=== PATIENT | female | born 1945 | race Caucasian/White ===

== ENCOUNTER → 2016-07-14 | Outpatient (CLI) | payer MEDICARE, OTHER ==
--- NOTE | 2016-07-14 15:31 | REP ---
DIAGNOSTIC MAMMOGRAM RIGHT BREAST WITH RIGHT BREAST ULTRASOUND: Diagnostic mammogram right breast performed for a reported palpable abnormality near the nipple in the lower inner aspect of the right breast. Comparison made with multiple prior exams, most recently 11/11/2015. There is no mass or clustered microcalcifications. Metallic clip is again seen in the right retroareolar region. There is no new mass or clustered microcalcifications. Real-time sonographic of the right breast performed in the region of the reported palpable abnormality. No cystic or solid nodule is seen. IMPRESSION: ACR 2 benign. No mass or clustered microcalcifications seen on the mammogram of the right breast. There is no mammographic or sonographic evidence of a mass at the site of the reported palpable abnormality in the right breast. A negative mammogram and ultrasound should not deter biopsy if there is a clinically suspicious palpable mass present. Clinical correlation and followup recommended. Recommend followup bilateral mammogram October 2016. This mammogram was interpreted with the aid of an FDA-approved computer-aided detection system. The patient states she/he had a clinical breast exam in 06/2016. The patient letter being requested is M2. Signed by David Young MD 07/14/2016 04:18 P
== END ==
LOC: M RAD 13:43
PROVIDERS: ATTEND Family Medicine
DX: N63 Unspecified lump in breast (principal); N64.4 Mastodynia
CPT/HCPCS: 76642; G0206

== ENCOUNTER → 2016-11-20 | Outpatient (CLI) | payer MEDICARE, OTHER ==
--- NOTE | 2016-11-20 13:10 | REPMRS ---
Patient History The patient states she has not had a clinical breast exam in over a year. Patient is postmenopausal. No known family history of cancer. Benign radio exam breast specimen of the left breast, December 23, 2015. Benign stereotatic loc for ea lesion of the left breast, December 23, 2015. Benign US guided breast biopsy of both breasts, November 21, 2013. Digital Mammo Screening Bilat: November 20, 2016 - Exam #: [id number] Bilateral CC and MLO view(s) were taken. Technologist: Beena Larsen, Technologist Prior study comparison: July 14, 2016, right breast digital mammo diagnostic unilateral performed at [facility]. November 18, 2015, left breast digital mammo diagnostic unilateral performed at [facility]. November 11, 2015, digital woman screen mammo, performed at [facility]. October 13, 2014, digital woman screen mammo, performed at [facility]. FINDINGS: There are scattered fibroglandular densities. There has been no change in the appearance of the mammogram from the prior studies. There is a mild amount of residual fibroglandular tissue which is fairly symmetric. There is no interval development of dominant mass, architectural distortion, or clustered microcalcification suggestive of malignancy. There is a stereotactic clip in UOQ L breast where prior calcific group was biopsied last year with benign results and no clustered calcifications remaining. ASSESSMENT: BI-RADS/ACR category 2 mammogram. Benign finding(s). Recommendation Routine screening mammogram in 1 year (for women over age 40). This mammogram was interpreted with the aid of an FDA-approved computer-aided dectection system. A. Negative x-ray reports should not delay biopsy if a dominant or clinically suspicious mass is present. B. Four to eight percent of cancers are not identified by mammography. C. Adenosis and dense breast may obscure an underlying neoplasm. Electronically Signed By: Braulio Pineda MD 11/20/16 [id number]
== END ==
LOC: M RAD 09:34
PROVIDERS: ATTEND Family Medicine
DX: Z12.31 Encounter for screening mammogram for malignant neoplasm of breast (principal)

== ENCOUNTER → 2017-11-13 | Outpatient (CLI) | payer MEDICARE, OTHER | LOC: M WHC 11:38 | DX: Z12.31 Encounter for screening mammogram for malignant neoplasm of breast (principal) | CPT/HCPCS: 77067 ==

== ENCOUNTER → 2018-09-03 | Outpatient (CLI) | payer MEDICARE, OTHER ==
[2018-09-03 17:56] LABS: BLOOD UREA NITROGEN 17 MG/DL (7-18); CALCIUM LEVEL 9.3 MG/DL (8.8-10.2); CARBON DIOXIDE LEVEL 34 MEQ/L (21-32); CHLORIDE LEVEL 96 MEQ/L (98-107); CREATININE FOR GFR 0.93 MG/DL (0.55-1.30); GLOMERULAR FILTRATION RATE > 60.0 (>39); GLUCOSE, FASTING 121 MG/DL (70-100); POTASSIUM SERUM 4.4 MEQ/L (3.5-5.1); SODIUM LEVEL 136 MEQ/L (136-145)
[2018-09-03 18:05] LABS: BASO # 0.1 10^3/uL (0.0-0.2); BASO % 0.7 % (0.0-1.0); EOS # 0.1 10^3/uL (0.0-0.50); EOS % 1.6 % (0.0-3.0); HEMATOCRIT 43.4 % (36.0-47.0); HEMOGLOBIN 13.8 g/dl (12.0-15.5); LYMPH # 2.4 10^3/uL (1.5-4.5); LYMPH % 27.9 % (24.0-44.0); MEAN CORPUSCULAR HEMOGLOBIN 31.7 pg (27.0-33.0); MEAN CORPUSCULAR HGB CONC 31.8 g/dl (32.0-36.5); MEAN CORPUSCULAR VOLUME 99.5 fl (80.0-96.0); MONO # 0.8 10^3/uL (0.0-0.8); NEUTROPHILS # 5.2 10^3/uL (1.8-7.7); NEUTROPHILS % 60.5 % (36.0-66.0); PLATELET COUNT, AUTOMATED 242 10^3/uL (150-450); RED BLOOD COUNT 4.36 10^6/uL (4.00-5.40); WHITE BLOOD COUNT 8.6 10^3/uL (4.0-10.0)
== END ==
LOC: M SMT 13:51
PROVIDERS: ATTEND Physician Assistant
DX: K22.70 Barrett's esophagus without dysplasia (principal)

== ENCOUNTER 2018-11-01 10:18 | Emergency (ER) | payer MEDICARE, OTHER ==
[~2018-11-01] VITALS: Ht 165.1 cm; Wt 107.7 kg
[2018-11-01] MEDS ORDERED: ONDANSETRON 4MG/2ML VIAL (J2405) IV ONE (10:45)
[2018-11-01] MEDS ORDERED: NITROGLYCERIN 2% OINT 1 GM *U/D* PKT TOP ONE (10:45)
[2018-11-01 10:46] LABS: BASO # 0.1 10^3/uL (0.0-0.2); BASO % 0.8 % (0.0-1.0); EOS # 0.3 10^3/uL (0.0-0.50); EOS % 3.7 % (0.0-3.0); HEMATOCRIT 42.2 % (36.0-47.0); HEMOGLOBIN 13.7 g/dl (12.0-15.5); LYMPH # 2.4 10^3/uL (1.5-4.5); LYMPH % 32.4 % (24.0-44.0); MEAN CORPUSCULAR HGB CONC 32.5 g/dl (32.0-36.5); MEAN CORPUSCULAR VOLUME 98.6 fl (80.0-96.0); MONO # 0.6 10^3/uL (0.0-0.8); MONO % 7.6 % (0.0-5.0); NEUTROPHILS # 4.1 10^3/uL (1.8-7.7); NEUTROPHILS % 55.2 % (36.0-66.0); PLATELET COUNT, AUTOMATED 166 10^3/uL (150-450); RED BLOOD COUNT 4.28 10^6/uL (4.00-5.40); WHITE BLOOD COUNT 7.4 10^3/uL (4.0-10.0)
[2018-11-01 10:57] LABS: INR 0.97; PARTIAL THROMBOPLASTIN TIME 27.2 SECONDS (25.0-38.4); PROTHROMBIN TIME 12.6 SECONDS (11.8-14.0)
[2018-11-01 11:12] LABS: BLOOD UREA NITROGEN 23 MG/DL (7-18); CALCIUM LEVEL 8.6 MG/DL (8.8-10.2); CARBON DIOXIDE LEVEL 32 MEQ/L (21-32); CHLORIDE LEVEL 104 MEQ/L (98-107); CK-MB VALUE MASS < 1.0 NG/ML (<3.6); CPK CREATINE PHOSPHOKINASE 49 U/L (26-192); CREATININE FOR GFR 0.88 MG/DL (0.55-1.30); GLOMERULAR FILTRATION RATE > 60.0 (>39); GLUCOSE, FASTING 130 MG/DL (70-100); MB/CK RELATIVE INDEX 2.04 (< OR =4); POTASSIUM SERUM 4.3 MEQ/L (3.5-5.1); SODIUM LEVEL 141 MEQ/L (136-145); TROPONIN I < 0.02 NG/ML (< 0.10)
--- NOTE | 2018-11-01 11:18 | REP ---
Portable chest x-ray: Single AP view. History: Chest pain. Comparison chest x-ray: April 01, 2012. Findings: Oxygen delivery tubing and EKG monitoring electrodes overlie the chest. The lungs are symmetrically aerated and free of infiltrate. Heart is not enlarged. Pulmonary vasculature is not increased. Right hemidiaphragm remains somewhat elevated unchanged. There are clips in right upper quadrant. Impression: No acute disease seen. Electronically Signed by Haider Saez MD 11/01/2018 12:38 P
[2018-11-01 11:23] LABS: ALBUMIN 3.6 GM/DL (3.2-5.2); BILIRUBIN,DIRECT 0.1 MG/DL (0.0-0.2); BILIRUBIN,TOTAL 0.3 MG/DL (0.2-1.0); FREE T4 0.87 NG/DL (0.76-1.46); THYROID STIMULATING HORMONE 3.21 uIU/ML (0.358-3.740); TOTAL PROTEIN 6.9 GM/DL (6.4-8.2)
[2018-11-01] MEDS ORDERED: METF500T4 PO (11:27)
[2018-11-01] MEDS ORDERED: ESCI20TA PO (11:27)
[2018-11-01] MEDS ORDERED: BREO1INH PO (11:27)
[2018-11-01] MEDS ORDERED: HYDR-3716 PO (11:27)
[2018-11-01] MEDS ORDERED: LISI10TA2 PO (11:27)
[2018-11-01] MEDS ORDERED: FURO40TA2 PO (11:27)
[2018-11-01] MEDS ORDERED: ATEN100T PO (11:27)
[2018-11-01] MEDS ORDERED: ALLO100T PO (11:27)
[2018-11-01] MEDS ORDERED: SIMV20TA2 PO (11:27)
[2018-11-01] MEDS ORDERED: ASPI81TA26 PO (11:27)
[2018-11-01] MEDS ORDERED: RANI300C PO (11:27)
[2018-11-01] MEDS ORDERED: ZYLO300T6 PO (11:27)
[2018-11-01] MEDS ORDERED: NYST10OI TOP (11:27)
[2018-11-01] MEDS ORDERED: ALBU83IN NEB (11:27)
[2018-11-01] MEDS ORDERED: POTA1TAB14 PO (11:27)
[2018-11-01] MEDS ORDERED: ESOM1CAP5 PO (11:27)
[2018-11-01] MEDS ORDERED: ISOVUE-370 76% 100ML VIAL (Q9967) As Ordered ONE (12:23)
--- NOTE | 2018-11-01 13:35 | REP ---
CT ANGIOGRAM CHEST: TECHNIQUE: Axial contrast enhanced images from the thoracic inlet to the upper abdomen using 100 mL Isovue 370 intravenous contrast material with multiplanar reformations. There is no CT evidence of pulmonary embolism. There is no thoracic aortic aneurysm or dissection, with scattered atherosclerotic plaquing noted. There is no evidence of mediastinal, hilar, or chest wall lymphadenopathy. The heart is normal in size. There is no pleural or pericardial effusion. There is moderate elevation of the right hemidiaphragm with right base atelectatic change. This is chronic. There is mild fibroatelectatic change in the inferior lingula and left lower lobe. IMPRESSION: No CT evidence of pulmonary embolism or aortic dissection. Bibasilar fibroatelectatic change. Electronically Signed by David Young MD 11/04/2018 01:03 P
--- NOTE | 2018-11-01 13:57 | REP ---
CT ABDOMEN AND PELVIS WITH IV CONTRAST: TECHNIQUE: Axial contrast enhanced images from the lung bases to the pubic symphysis using 100 mL Isovue 370 intravenous contrast material with multiplanar reformations. Liver demonstrates a 2 cm peripherally enhancing nodule most consistent with hemangioma, laterally in the right lobe. The patient has had a prior cholecystectomy. There is not significant biliary dilatation. The spleen is normal in size with no intrinsic abnormality. Both adrenal glands are mildly thickened. Pancreas demonstrates no significant abnormality. Pancreatic duct is not dilated. There is no peripancreatic inflammation. Two subcentimeter cysts are seen in the left kidney. There is no hydronephrosis bilaterally. There is moderate atherosclerotic calcification of the abdominal aorta without aneurysm. I see no adenopathy, free air or free fluid. There are multiple central subcentimeter lymph nodes in the mesentery which are nonspecific, but not significantly enlarged. No bowel wall thickening is seen. There is no evidence of appendicitis. There is sigmoid diverticulosis without evidence of acute diverticulitis. No pelvic mass is seen. Urinary bladder appears unremarkable. There are degenerative changes of the spine. An oval cystic structure is seen in the right vaginal wall measuring about 19 x 8 mm. IMPRESSION: No CT evidence of pancreatitis. Sigmoid diverticulosis without acute diverticulitis. Multiple subcentimeter lymph nodes centrally in the mesentery are nonspecific, not significantly enlarged. Nodule in the right lobe of the liver is most consistent with hemangioma. There is bilateral adrenal gland thickening. No free air or free fluid. No hydronephrosis. No evidence of appendicitis. The central mesentery lymph nodes could indicate some degree of mesenteritis or panniculitis, possibly choric. Electronically Signed by David Young MD 11/04/2018 01:03 P
[2018-11-01] MEDS ORDERED: NS 500 ML IV ONE (14:45)
[2018-11-01] MEDS ORDERED: methylPREDNISolone INJ 125 MG/2 ML VIAL (J2930) IV ONE (16:30)
[2018-11-01] MEDS ORDERED: IPRATROPIUM 0.5MG/ALBUTEROL 2.5MG INH SOL UD 3ML (DUONEB)(J7620) NEB ONE (16:30)
[2018-11-01] MEDS ORDERED: ALBUTEROL SULFATE 2.5 MG/0.5 ML INH NEB SOLN INH ONE (16:30)
[2018-11-01 16:31] LABS: CK-MB VALUE MASS < 1.0 NG/ML (<3.6); CPK CREATINE PHOSPHOKINASE 42 U/L (26-192); MB/CK RELATIVE INDEX 2.38 (< OR =4); TROPONIN I < 0.02 NG/ML (< 0.10)
[2018-11-01 18:27] VITALS: BP 121/56
--- NOTE | 2018-11-01 20:31 | ECGEPIP ---
[facility] - ED Test Date: 2018-11-01 Pat Name: EKATERINA HOYT Department: Room: - Gender: Female Biological Aide: : 1945 Requested By: Richard Mojica Order Number: [id number] Reading MD: Richard Mojica Measurements Intervals [place] Rate: 57 P: DE: 145 QRS: 37 QRSD: 80 T: 31 QT: 412 QTc: 403 Interpretive Statements SINUS BRADYCARDIA NO PRIOR ECG FOR COMPAIRSON SUBTLE ST ELEVATION INFERIOR LEADS, NO RECIPROCAL LEADS RULE OUT ACUTE CORONARY SYNDROME VS NONSPECIFIC ST T WAVE CHANGES Electronically Signed on 11-01-2018 20:31:25 EDT by Richard Mojica
--- NOTE | 2018-11-01 20:33 | ECGEPIP ---
[facility] - ED Test Date: 2018-11-01 Pat Name: EKATERINA HOYT Department: Room: - Gender: Female Head Of Ict: : 1945 Requested By: Richard Mojica Order Number: [id number] Reading MD: Richard Mojica Measurements Intervals [place] Rate: 52 P: 60 OK: 177 QRS: 32 QRSD: 84 T: 35 QT: 447 QTc: 419 Interpretive Statements SINUS BRADYCARDIA SUBTLE ST ELEVATION INFERIOR LEDAS, NO RECIPROCAL CHANGES RULE OUT ACUTE CORONARY SYNDROME VS NONSPECIFIC ST T WAVE CHANGES CLINICAL CORRELATION ADVISED CW 11/01/18 RATE DECREASED SIMILAR MORPHOLGY Electronically Signed on 11-01-2018 20:33:36 EDT by Richard Mojica
--- NOTE | 2018-11-01 20:50 | ECGEPIP ---
[facility] - ED Test Date: 2018-11-01 Pat Name: EKATERINA HOYT Department: Room: - Gender: Female Contracts Paralegal: : 1945 Requested By: Richard Mojica Order Number: [id number] Reading MD: Richard Mojica Measurements Intervals [place] Rate: 65 P: 56 VT: 182 QRS: 27 QRSD: 82 T: 32 QT: 399 QTc: 418 Interpretive Statements SINUS RHYTHM SUBTLE ST ELEVATION INFERIOR LEADS, NO RECIPROCAL CHANGES RULE OUT ACUTE CORONARY SYNDROME VS NONSPECIFIC ST T WAVE CHANGES CLINICAL CORRELATION ADVISED CW 11/01/[address] T WAVE CHANGES Electronically Signed on 11-01-2018 20:50:16 EDT by Richard Mojica
--- NOTE | 2018-11-06 13:50 | ED PDOC ---
Post-Departure Follow-Up dr erika arboleda faxed formal reportof ct abd/p for fu Richard Mcdonald MD Nov 06, 2018 13:50
== END 2018-11-01 18:29 | disposition home or self-care (01) ==
LOC: EDBD 10:18 → M ED 10:18
DX: R09.02 Hypoxemia (principal); R07.9 Chest pain, unspecified; E11.9 Type 2 diabetes mellitus without complications; I10 Essential (primary) hypertension; J44.9 Chronic obstructive pulmonary disease, unspecified; E78.5 Hyperlipidemia, unspecified; K22.70 Barrett's esophagus without dysplasia; Z79.899 Other long term (current) drug therapy; Z79.84 Long term (current) use of oral hypoglycemic drugs; Z79.82 Long term (current) use of aspirin; Z87.891 Personal history of nicotine dependence
CPT/HCPCS: 71045; 71275; 74177; 80048; 80076; 82550; 82553; 83690; 83880; 84439; 84443; 84484; 85025; 85610; 85730; 93005; 93041; 94640; 94760; 96361; 96374; 96375; 99285; J2405; J2930; Q9967

== ENCOUNTER → 2018-11-07 | Outpatient (CLI) | payer MEDICARE, OTHER ==
[~2018-11-07] MED LIST: ALBU83IN NEB; ALLO100T PO; ASPI81TA26 PO; ATEN100T PO; BREO1INH PO; ESCI20TA PO; ESOM1CAP5 PO; FURO40TA2 PO; HYDR-3716 PO; LISI10TA2 PO; METF500T4 PO; NYST10OI TOP; POTA1TAB14 PO; RANI300C PO; SIMV20TA2 PO; ZYLO300T6 PO
== END ==
LOC: M WUC 11:58
PROVIDERS: ATTEND Physician Assistant
DX: R74.8 Abnormal levels of other serum enzymes (principal)

== ENCOUNTER 2018-11-13 08:04 | Day surgery (SDC) | payer MEDICARE, OTHER ==
[~2018-11-13] VITALS: Ht 165.1 cm; Wt 107.0 kg
[~2018-11-13 08:04] MED LIST changes: +LIDOCAINE 2% INJ 100 MG/5 ML SDV (FOR ANES.) As Ordered ONE; +NS 1,000 ML IV ONE; +PROPOFOL 200 MG/20 ML VIAL As Ordered ONE
--- NOTE | 2018-11-13 10:07 | ROOR ---
Patient Name: Zaria Bailon Procedure Date: 11/13/2018 9:50 AM Date of : 1945 Age: 73 Room: [facility] Gender: Female Note Status: Finalized Procedure: Upper Endoscopy + Biopsies Indications: Heartburn, Diarrhea Providers: Mika Dalton MD Referring MD: Carline CULVER DO Requesting Provider: Medicines: Monitored Anesthesia Care Complications: No immediate complications. Procedure: Pre-Anesthesia Assessment: - The heart rate, respiratory rate, oxygen saturations, blood pressure, adequacy of pulmonary ventilation, and response to care were monitored throughout the procedure. The Endoscope was introduced through the mouth, and advanced to the second part of duodenum. The upper GI endoscopy was accomplished without difficulty. The patient tolerated the procedure well. Findings: The Z-line was irregular and was found 40 cm from the incisors. Multiple biopsies were obtained with cold forceps for evaluation to rule out Mcnamara's Esophagus randomly at the gastroesophageal junction. A medium-sized hiatal hernia was present. One small sessile polyp with no stigmata of recent bleeding was found in the gastric antrum. Biopsies were taken with a cold forceps for histology. Biopsies were taken with a cold forceps in the gastric antrum for Helicobacter pylori testing. The exam of the duodenum was otherwise normal. Biopsies for histology were taken with a cold forceps in the first portion of the duodenum for evaluation of celiac disease. The exam was otherwise without abnormality. Impression: - Z-line irregular, 40 cm from the incisors. - Medium-sized hiatal hernia. - One gastric polyp. Biopsied. - The examination was otherwise normal. - Multiple biopsies were obtained at the gastroesophageal junction. - Biopsies were taken with a cold forceps for Helicobacter pylori testing. - Biopsies were taken with a cold forceps for evaluation of celiac disease. - The examination was otherwise normal. Recommendation: - Patient has a contact number available for emergencies. The signs and symptoms of potential delayed complications were discussed with the patient. Return to normal activities tomorrow. Written discharge instructions were provided to the patient. - High fiber diet. - Discharge patient to home. - Follow an antireflux regimen. - Continue present medications. - Await pathology results. - Telephone GI clinic for pathology results in 1 week. - Return to referring physician. - The findings and recommendations were discussed with the patient's family. Mika Dalton MD Mika Dalton MD 11/13/2018 10:07:15 AM Electronically signed by Mika Dalton MD Number of Addenda: 0 Note Initiated On: 11/13/2018 9:50 AM Estimated Blood Loss: Estimated blood loss: none.
[2018-11-13] MEDS ORDERED: PHENYLephrine HCL 500 MCG/5 ML (100MCG/ML) SYRINGE (J2370) As Ordered ONE (10:08)
--- NOTE | 2018-11-13 10:23 | ROOR ---
Patient Name: Zaria Bailon Procedure Date: 11/13/2018 9:50 AM Date of : 1945 Age: 73 Room: [facility] Gender: Female Note Status: Finalized Procedure: Total Colonoscopy to Cecum + Bx. To r/o Microscopic Colitis Indications: Clinically significant diarrhea of unexplained origin Providers: Mika Dalton MD Referring MD: Carline CULVER DO Requesting Provider: Medicines: Monitored Anesthesia Care Complications: No immediate complications. Procedure: Pre-Anesthesia Assessment: - The heart rate, respiratory rate, oxygen saturations, blood pressure, adequacy of pulmonary ventilation, and response to care were monitored throughout the procedure. The Colonoscope was introduced through the anus and advanced to the cecum, identified by appendiceal orifice and ileocecal valve. The colonoscopy was performed without difficulty. The patient tolerated the procedure well. The quality of the bowel preparation was good. Findings: The perianal and digital rectal examinations were normal. Non-bleeding internal hemorrhoids were found during retroflexion. The hemorrhoids were small and Grade I (internal hemorrhoids that do not prolapse). Scattered small-mouthed diverticula were found in the recto-sigmoid colon, sigmoid colon and descending colon. Biopsies for histology were taken with a cold forceps from the ascending colon, transverse colon and descending colon for evaluation of microscopic colitis. The exam was otherwise without abnormality on direct and retroflexion views. Impression: - Non-bleeding internal hemorrhoids. - Diverticulosis in the recto-sigmoid colon, in the sigmoid colon and in the descending colon. - The examination was otherwise normal on direct and retroflexion views. - Biopsies were taken with a cold forceps from the ascending colon, transverse colon and descending colon for evaluation of microscopic colitis. - The exam was otherwise normal to the cecum. Recommendation: - Patient has a contact number available for emergencies. The signs and symptoms of potential delayed complications were discussed with the patient. Return to normal activities tomorrow. Written discharge instructions were provided to the patient. - High fiber diet. - Discharge patient to home. - Continue present medications. - Await pathology results. - Telephone GI clinic for pathology results in 1 week. - Repeat colonoscopy for symptoms only. - Return to referring physician. - The findings and recommendations were discussed with the patient's family. Mika Dalton MD Mika Dalton MD 11/13/2018 10:23:17 AM Electronically signed by Mika Dalton MD Number of Addenda: 0 Note Initiated On: 11/13/2018 9:50 AM Estimated Blood Loss: Estimated blood loss: none.
[2018-11-13 10:45] VITALS: BP 128/62
== END 2018-11-13 11:02 | disposition home or self-care (01) ==
LOC: M OPP 08:04
PROVIDERS: ATTEND Internal Medicine Gastroenterology
DX: K64.0 First degree hemorrhoids (principal); K57.30 Diverticulosis of large intestine without perforation or abscess without bleeding; R19.7 Diarrhea, unspecified; Z86.010 Personal history of colon polyps; K22.8 Other specified diseases of esophagus; K44.9 Diaphragmatic hernia without obstruction or gangrene; K31.7 Polyp of stomach and duodenum; R12 Heartburn; Z79.82 Long term (current) use of aspirin; Z79.84 Long term (current) use of oral hypoglycemic drugs; Z79.891 Long term (current) use of opiate analgesic; Z79.899 Other long term (current) drug therapy
CPT/HCPCS: 43239; 45380; 88305; J2370

== ENCOUNTER → 2019-01-09 | Outpatient (CLI) | payer MEDICARE, OTHER ==
[~2019-01-09] MED LIST changes: -LIDOCAINE 2% INJ 100 MG/5 ML SDV (FOR ANES.) As Ordered ONE; +LISI10TA15 PO; -LISI10TA2 PO; +METF-791 PO; -METF500T4 PO; -NS 1,000 ML IV ONE; -PROPOFOL 200 MG/20 ML VIAL As Ordered ONE
--- NOTE | 2019-01-09 11:54 | REP ---
BILATERAL SCREENING DIGITAL MAMMOGRAM WITH 3D TOMOSYNTHESIS: There are no palpable abnormalities or other breast complaints. The the patient states she has not had a clinical breast examination in over a year. The the patient states she performs self-breast examinations zero times per year. The Tyrer-Cuzick Score is: 3.0% . Comparison is 10/23/2016. The the patient has had multiple bilateral breast biopsies. All of the biopsies have been benign. There are scattered areas of fibroglandular density. There is no dominant mass, micro calcific cluster or architectural distortion that would indicate malignancy. There is a biopsy marking clip in each breast, unchanged. There are occasional benign calcifications in each breast. These are unchanged. There are no additional findings on 3D tomosynthesiss. There is no change from the prior study. Impression: BIRADS/ACR category 2 mammogram. Benign findings. Recommendation: Routine annual screening mammography. This mammogram was interpreted with the aid of a FDA approved computer-aided detection system. A. Negative mammogram reports should not delay biopsy if a dominant or clinically suspicious mass is present. B. Not all breast cancers are identified by mammography or tomosynthesis. C. Adenosis and dense breasts may obscure an underlying neoplasm. Patient letter M1. Electronically Signed by David Carlos MD 01/09/2019 11:45 A
== END ==
LOC: M WHC 09:46
PROVIDERS: ATTEND Family Medicine
DX: Z12.31 Encounter for screening mammogram for malignant neoplasm of breast (principal); R92.1 Mammographic calcification found on diagnostic imaging of breast

== ENCOUNTER → 2019-11-06 | Outpatient (REF) | payer MEDICARE, OTHER ==
[~2019-11-06] MED LIST changes: -METF-791 PO; +METF-838 PO; -SIMV20TA2 PO; +SIMV20TA22 PO
== END ==
LOC: M LAB REF 17:40
PROVIDERS: ATTEND Physician Assistant Medical
DX: Z11.59 Encounter for screening for other viral diseases (principal); Z20.828 Contact with and (suspected) exposure to other viral communicable diseases

== ENCOUNTER → 2020-01-29 | Outpatient (CLI) | payer MEDICARE, OTHER ==
--- NOTE | 2020-01-29 12:02 | REPMRS ---
Patient History The patient states she has not had a clinical breast exam in over a year. No known family history of cancer. Benign radio exam breast specimen of the left breast, December 23, 2015. Benign stereotatic loc for ea lesion of the left breast, December 23, 2015. Benign US guided breast biopsy of both breasts, November 21, 2013. No Hormone Replacement Therapy 3D TOMOSYNTHESIS WAS PERFORMED. The [facility] lifetime risk for breast cancer is 2.8%. VOLPARA DENSITY A. Digital Woman Screen Mammo: January 29, 2020 - Exam #: [id number] Bilateral CC and MLO view(s) were taken. Technologist: Catherine Garber, Technologist Prior study comparison: January 09, 2019, bilateral digital woman screen mammo performed at [facility]. November 13, 2017, bilateral digital woman screen mammo performed at [facility]. FINDINGS: There are scattered fibroglandular densities. There has been no change in the appearance of the mammogram from the prior studies. There is a mild amount of residual fibroglandular tissue which is fairly symmetric. There is no interval development of dominant mass, architectural distortion, or clustered microcalcification suggestive of malignancy. Assessment: BI-RADS/ACR category 1 mammogram. Negative Mammogram. Recommendation Routine screening mammogram in 1 year (for women over age 40). This mammogram was interpreted with the aid of an FDA-approved computer-aided dectection system. Electronically Signed By: David Young MD 01/29/20 [id number]
== END ==
LOC: M WHC 09:50
PROVIDERS: ATTEND Family Medicine
DX: Z12.31 Encounter for screening mammogram for malignant neoplasm of breast (principal); Z86.018 Personal history of other benign neoplasm

== ENCOUNTER → 2021-02-08 | Outpatient (CLI) | payer MEDICARE, OTHER ==
[~2021-02-08] MED LIST changes: -ESCI20TA PO; +ESCI20TA16 PO
--- NOTE | 2021-02-08 16:51 | REPMRS ---
Patient History The patient states she has not had a clinical breast exam in over a year. No known family history of cancer. Benign radio exam breast specimen of the left breast, December 23, 2015. Benign stereotatic loc for ea lesion of the left breast, December 23, 2015. Benign US guided breast biopsy of both breasts, November 21, 2013. No Hormone Replacement Therapy Tomosynthesis is performed. Volpara breast density is a. [facility] lifetime risk of breast cancer 2.6%. Patient states no breast complaints today. Patient has signed MRS History Sheet. Digital Woman Screen Mammo: February 08, 2021 - Exam #: [id number] Bilateral CC and MLO view(s) were taken. Technologist: Azul Alanologist Prior study comparison: January 29, 2020, bilateral digital woman screen mammo performed at [facility]. January 09, 2019, bilateral digital woman screen mammo performed at [facility]. FINDINGS: There are scattered fibroglandular densities. There has been no change in the appearance of the mammogram from the prior studies. There is a mild amount of residual fibroglandular tissue which is fairly symmetric. There is no interval development of dominant mass, architectural distortion, or clustered microcalcification suggestive of malignancy. Assessment: BI-RADS/ACR category 1 mammogram. Negative Mammogram. Recommendation Routine screening mammogram in 1 year (for women over age 40). This mammogram was interpreted with the aid of an FDA-approved computer-aided dectection system. Electronically Signed By: David Young MD 02/08/21 [id number]
== END ==
LOC: M WHC 09:52
PROVIDERS: ATTEND Family Medicine
DX: Z12.31 Encounter for screening mammogram for malignant neoplasm of breast (principal)

== ENCOUNTER → 2021-06-21 | Outpatient (CLI) | payer MEDICARE, OTHER ==
[~2021-06-21] MED LIST changes: -LISI10TA15 PO; +LISI10TA24 PO; +PROHANCE 279.3MG/ML 15ML VIAL As Ordered ONE; +PROHANCE 279.3MG/ML 5ML VIAL As Ordered ONE
== END ==
LOC: M RAD 09:32
PROVIDERS: ATTEND Nurse Practitioner Adult Health
DX: M54.2 Cervicalgia (principal)
CPT/HCPCS: 70544; 70553; A9576

== ENCOUNTER → 2021-11-10 | Outpatient (REF) | payer MEDICARE, OTHER ==
[~2021-11-10] MED LIST changes: +ALBU2.5V10 NEB; -ALBU83IN NEB; -PROHANCE 279.3MG/ML 15ML VIAL As Ordered ONE; -PROHANCE 279.3MG/ML 5ML VIAL As Ordered ONE
== END ==
LOC: M LAB REF 17:17
PROVIDERS: ATTEND Physician Assistant
DX: J06.9 Acute upper respiratory infection, unspecified (principal)

== ENCOUNTER → 2022-02-10 | Outpatient (CLI) | payer MEDICARE, OTHER | LOC: M WHC 11:03 | PROVIDERS: ATTEND Nurse Practitioner Adult Health | DX: Z12.31 Encounter for screening mammogram for malignant neoplasm of breast (principal) ==

== ENCOUNTER → 2022-06-13 | Outpatient (REF) | payer MEDICARE, OTHER | LOC: M LAB REF 16:56 | PROVIDERS: ATTEND Nurse Practitioner Adult Health | DX: J02.9 Acute pharyngitis, unspecified (principal) ==

== ENCOUNTER → 2023-05-08 | Outpatient (CLI) | payer MEDICARE, OTHER ==
[~2023-05-08] MED LIST changes: +POTA-298 PO; -POTA1TAB14 PO
== END ==
LOC: M PLAIMG 14:14
PROVIDERS: ATTEND Family Medicine
DX: J44.0 Chronic obstructive pulmonary disease with (acute) lower respiratory infection (principal)

== ENCOUNTER → 2023-05-11 | Outpatient (CLI) | payer MEDICARE, OTHER | LOC: M WHC 12:38 | PROVIDERS: ATTEND Nurse Practitioner Adult Health | DX: Z12.31 Encounter for screening mammogram for malignant neoplasm of breast (principal) ==

== ENCOUNTER → 2023-08-09 | Outpatient (CLI) | payer MEDICARE, OTHER ==
[~2023-08-09] MED LIST changes: +NYST100084 TOP; -NYST10OI TOP
== END ==
LOC: M SLEEP 20:00
PROVIDERS: ATTEND Nurse Practitioner Family
DX: G47.33 Obstructive sleep apnea (adult) (pediatric) (principal)

== ENCOUNTER → 2023-08-13 | Outpatient (CLI) | payer MEDICARE, OTHER | LOC: M PLAIMG 12:46 | PROVIDERS: ATTEND Nurse Practitioner Family | DX: J43.9 Emphysema, unspecified (principal) ==

== ENCOUNTER → 2023-08-20 | Outpatient (CLI) | payer MEDICARE, OTHER ==
[~2023-08-20] MED LIST changes: +ISOVUE-370 76% 100ML VIAL As Ordered ONE
== END ==
LOC: M RAD 08:26
PROVIDERS: ATTEND Nurse Practitioner Adult Health
DX: R91.8 Other nonspecific abnormal finding of lung field (principal)
CPT/HCPCS: 71260; Q9967

== ENCOUNTER → 2023-08-23 | Outpatient (CLI) | payer MEDICARE, OTHER ==
[~2023-08-23] MED LIST changes: -ISOVUE-370 76% 100ML VIAL As Ordered ONE
== END ==
LOC: M PLAIMG 07:09
PROVIDERS: ATTEND Nurse Practitioner Adult Health
DX: S46.011A Strain of muscle(s) and tendon(s) of the rotator cuff of right shoulder, initial encounter (principal); W18.30XA Fall on same level, unspecified, initial encounter; Y92.009 Unspecified place in unspecified non-institutional (private) residence as the place of occurrence of the external cause

== ENCOUNTER 2024-01-21 07:50 | Day surgery (SDC) | payer MEDICARE, OTHER ==
[~2024-01-21] VITALS: Ht 165.1 cm; Wt 99.3 kg
[~2024-01-21 07:50] MED LIST changes: +ALLO300T2 PO; +ATEN50TA2 PO; +BUDE10.7 INH; +ERGO500029 PO; +ESOM1CAP20 PO; -ESOM1CAP5 PO; +FAMO40TA3 PO; +GABA-282 PO; +LEXA1TAB2 PO; +LISI10TA22 PO; +PANT40TA29 PO; +POTA1TAB23 PO; +SIMV40TA20 PO
[2024-01-21] MEDS: NS 1,000 ML IV ONE (08:19)
[2024-01-21] MEDS ORDERED: propofoL 500 MG/50 ML VIAL As Ordered ONE (09:15)
[2024-01-21] MEDS ORDERED: LIDOCAINE 2% 100MG/5ML SDV (FOR ANES.) As Ordered ONE (09:15)
[2024-01-21] MEDS ORDERED: fentaNYL 100 MCG/2 ML INJECTION As Ordered ONE (09:18)
[2024-01-21] MEDS ORDERED: GLYCOPYRROLATE INJ 0.2 MG/ML 2 ML VIAL As Ordered ONE (09:50)
[2024-01-21 09:59] VITALS: TEMP 97.7
[2024-01-21 10:18] VITALS: BP 105/55; O2SAT 94
== END 2024-01-21 10:36 | disposition home or self-care (01) ==
LOC: M OPP 07:50
PROVIDERS: ATTEND Internal Medicine Gastroenterology
DX: Z86.010 Personal history of colon polyps (principal); D12.0 Benign neoplasm of cecum; K64.0 First degree hemorrhoids; K57.30 Diverticulosis of large intestine without perforation or abscess without bleeding; K44.9 Diaphragmatic hernia without obstruction or gangrene; K31.89 Other diseases of stomach and duodenum; I10 Essential (primary) hypertension; E78.00 Pure hypercholesterolemia, unspecified; E11.9 Type 2 diabetes mellitus without complications; K76.0 Fatty (change of) liver, not elsewhere classified; K21.9 Gastro-esophageal reflux disease without esophagitis; M19.90 Unspecified osteoarthritis, unspecified site; F41.9 Anxiety disorder, unspecified; F32.A Depression, unspecified; G43.909 Migraine, unspecified, not intractable, without status migrainosus; J44.9 Chronic obstructive pulmonary disease, unspecified; Z87.891 Personal history of nicotine dependence; Z79.51 Long term (current) use of inhaled steroids; Z79.82 Long term (current) use of aspirin; Z79.84 Long term (current) use of oral hypoglycemic drugs; Z79.899 Other long term (current) drug therapy
CPT/HCPCS: 43239; 45380; 88305; J1596; J3010

== ENCOUNTER → 2024-05-20 | Outpatient (CLI) | payer MEDICARE, OTHER ==
[~2024-05-20] MED LIST changes: +GABA-1172 PO; -GABA-282 PO
== END ==
LOC: M WHC 09:26
PROVIDERS: ATTEND Nurse Practitioner Adult Health
DX: Z12.31 Encounter for screening mammogram for malignant neoplasm of breast (principal)

== ENCOUNTER 2024-07-14 12:55 | Emergency (ER) | payer MEDICARE, OTHER ==
[~2024-07-14] VITALS: Ht 165.1 cm; Wt 99.4 kg
[2024-07-14 14:16] LABS: BASO % 0.4 % (0.0-1.0); EOS # 0.1 10^3/uL (0.0-0.5); EOS % 0.6 % (0.0-3.0); HEMATOCRIT 39.7 % (36.0-47.0); HEMOGLOBIN 12.7 g/dl (12.0-15.5); LYMPH # 1.1 10^3/uL (1.5-5.0); LYMPH % 10.5 % (24.0-44.0); MEAN CORPUSCULAR HEMOGLOBIN 31.8 pg (27.0-33.0); MEAN CORPUSCULAR VOLUME 99.3 fl (80.0-96.0); MONO # 0.6 10^3/uL (0.0-0.8); MONO % 5.5 % (2.0-8.0); NEUTROPHILS # 8.9 10^3/uL (1.5-8.5); NEUTROPHILS % 82.6 % (36.0-66.0); PLATELET COUNT, AUTOMATED 179 10^3/uL (150-450); WHITE BLOOD COUNT 10.8 10^3/uL (4.0-10.0)
[2024-07-14] MEDS: METOCLOPRAMIDE INJ 10MG/2ML VIAL IV ONE (14:18)
[2024-07-14 14:38] LABS: ALBUMIN 3.6 G/DL (3.2-5.2); BILIRUBIN,DIRECT 0.2 MG/DL (<0.4); BILIRUBIN,TOTAL 0.4 MG/DL (0.3-1.2); CREATININE FOR GFR 1.33 MG/DL (0.55-1.30); GLOMERULAR FILTRATION RATE 41.1 (>39); POTASSIUM SERUM 4.5 MMOL/L (3.5-5.1); TOTAL PROTEIN 6.9 G/DL (5.7-8.2)
[2024-07-14] MEDS ORDERED: ISOVUE-370 76% 100ML VIAL As Ordered ONE (14:58)
[2024-07-14] MEDS: NS 500 ML IV ONE (15:45)
[2024-07-14] MEDS ORDERED: ONDA-282 PO (17:28)
[2024-07-14 17:41] VITALS: BP 118/55; TEMP 98; O2SAT 94
== END 2024-07-14 17:46 | disposition home or self-care (01) ==
LOC: M ED 12:55
DX: R51.9 Headache, unspecified (principal); R11.2 Nausea with vomiting, unspecified; R00.1 Bradycardia, unspecified; I48.91 Unspecified atrial fibrillation; E11.9 Type 2 diabetes mellitus without complications; I10 Essential (primary) hypertension; K21.9 Gastro-esophageal reflux disease without esophagitis; J44.9 Chronic obstructive pulmonary disease, unspecified; Z79.51 Long term (current) use of inhaled steroids; Z79.899 Other long term (current) drug therapy; Z79.84 Long term (current) use of oral hypoglycemic drugs
CPT/HCPCS: 70450; 74177; 80053; 82248; 83690; 85025; 85730; 86850; 86900; 86901; 93005; 96361; 96374; 99284; J2765; Q9967

== ENCOUNTER → 2024-12-16 | Outpatient (CLI) | payer MEDICARE, OTHER ==
[~2024-12-16] MED LIST changes: +ONDA-282 PO
== END ==
LOC: M RAD 13:18
PROVIDERS: ATTEND Nurse Practitioner Adult Health
DX: R59.0 Localized enlarged lymph nodes (principal)

== ENCOUNTER 2024-12-21 11:01 | Emergency (ER) | payer MEDICARE, OTHER ==
[~2024-12-21] VITALS: Ht 165.1 cm; Wt 95.1 kg
[2024-12-21 13:44] LABS: BASO # 0.0 10^3/uL (0.0-0.2); BASO % 0.6 % (0.0-1.0); EOS # 0.0 10^3/uL (0.0-0.5); EOS % 0.5 % (0.0-3.0); LYMPH # 0.7 10^3/uL (1.5-5.0); LYMPH % 11.3 % (24.0-44.0); MONO # 0.4 10^3/uL (0.0-0.8); MONO % 6.0 % (2.0-8.0); NEUTROPHILS # 5.1 10^3/uL (1.5-8.5); NEUTROPHILS % 81.1 % (36.0-66.0); PLATELET COUNT, AUTOMATED 156 10^3/uL (150-450)
[2024-12-21 14:13] LABS: ALT/SGPT 16.0 U/L (7.0-40); AST/SGOT 20.0 U/L (<34); CALCIUM LEVEL 9.5 MG/DL (8.3-10.6); CARBON DIOXIDE LEVEL 32.0 MMOL/L (20-31); CHLORIDE LEVEL 104.0 MMOL/L (98-107); CREATININE FOR GFR 0.94 MG/DL (0.55-1.30); GLOMERULAR FILTRATION RATE 62.1 (>39); POTASSIUM SERUM 4.6 MMOL/L (3.5-5.1); SODIUM LEVEL 145.0 MMOL/L (136-145)
[2024-12-21] MEDS: PANTOPRAZOLE 40MG VIAL IV ONE (14:19)
[2024-12-21] MEDS: FLUORESCEIN OPHTH 1 MG STRIP OD ONE (14:35)
[2024-12-21] MEDS: PROPARACAINE 0.5% OPHTH SOL 15ML OD ONE (14:35)
[2024-12-21 15:00] VITALS: TEMP 97.2
[2024-12-21] MEDS: ACETAMINOPHEN 325 MG TAB PO ONE (16:16)
[2024-12-21 16:25] VITALS: BP 128/59; O2SAT 96
== END 2024-12-21 16:26 | disposition home or self-care (01) ==
LOC: M ED 11:01
DX: R11.0 Nausea (principal); H57.11 Ocular pain, right eye; R94.31 Abnormal electrocardiogram [ECG] [EKG]; E11.9 Type 2 diabetes mellitus without complications; K21.9 Gastro-esophageal reflux disease without esophagitis; I10 Essential (primary) hypertension; J44.9 Chronic obstructive pulmonary disease, unspecified; Z79.51 Long term (current) use of inhaled steroids; Z79.1 Long term (current) use of non-steroidal anti-inflammatories (NSAID); Z79.84 Long term (current) use of oral hypoglycemic drugs; Z79.899 Other long term (current) drug therapy
CPT/HCPCS: 80048; 80076; 83690; 85025; 93005; 96374; 99284; J2470

== ENCOUNTER → 2025-01-14 | Outpatient (CLI) | payer MEDICARE, OTHER ==
[~2025-01-14] MED LIST changes: +ISOVUE-370 76% 100 ML VIAL As Ordered ONE
== END ==
LOC: M RAD 08:59
PROVIDERS: ATTEND Nurse Practitioner Adult Health
DX: M79.3 Panniculitis, unspecified (principal); I25.10 Atherosclerotic heart disease of native coronary artery without angina pectoris; D18.03 Hemangioma of intra-abdominal structures; Z90.49 Acquired absence of other specified parts of digestive tract; K57.90 Diverticulosis of intestine, part unspecified, without perforation or abscess without bleeding
CPT/HCPCS: 70491; 74177; Q9967

== ENCOUNTER 2025-01-15 06:19 | Emergency (ER) | payer MEDICARE, OTHER ==
[~2025-01-15] VITALS: Ht 165.1 cm; Wt 97.3 kg
[~2025-01-15 06:19] MED LIST changes: -ISOVUE-370 76% 100 ML VIAL As Ordered ONE
[2025-01-15 06:54] LABS: BASO # 0.1 10^3/uL (0.0-0.2); BASO % 0.6 % (0.0-1.0); EOS # 0.1 10^3/uL (0.0-0.5); EOS % 1.5 % (0.0-3.0); LYMPH # 0.9 10^3/uL (1.5-5.0); LYMPH % 11.5 % (24.0-44.0); MONO # 0.6 10^3/uL (0.0-0.8); MONO % 7.7 % (2.0-8.0); NEUTROPHILS # 6.2 10^3/uL (1.5-8.5); NEUTROPHILS % 78.3 % (36.0-66.0); PLATELET COUNT, AUTOMATED 154 10^3/uL (150-450)
[2025-01-15 07:27] LABS: ALT/SGPT 12 U/L (7.0-40); CALCIUM LEVEL 7.3 MG/DL (8.3-10.6); CARBON DIOXIDE LEVEL 24 MMOL/L (20-31); CHLORIDE LEVEL 112 MMOL/L (98-107); CK-MB VALUE MASS < 1.0 NG/ML (<3.6); CPK CREATINE PHOSPHOKINASE 37 U/L (34-145); CREATININE FOR GFR 0.70 MG/DL (0.55-1.30); GLOMERULAR FILTRATION RATE 88.5 (>39); POTASSIUM SERUM 3.7 MMOL/L (3.5-5.1); SODIUM LEVEL 147 MMOL/L (136-145)
[2025-01-15 07:36] VITALS: BP 123/61
[2025-01-15] MEDS: FUROSEMIDE 40 MG/4 ML VIAL IV ONE (07:36)
[2025-01-15 10:47] VITALS: TEMP 99.3
[2025-01-15 10:56] VITALS: BP 118/56; O2SAT 93
[2025-01-16 06:24] LABS: AST/SGOT 19 U/L (<34)
== END 2025-01-15 11:36 | disposition home or self-care (01) ==
LOC: M ED 06:19
DX: I50.813 Acute on chronic right heart failure (principal); E11.9 Type 2 diabetes mellitus without complications; I11.0 Hypertensive heart disease with heart failure; J44.9 Chronic obstructive pulmonary disease, unspecified; E78.5 Hyperlipidemia, unspecified; F41.9 Anxiety disorder, unspecified; F32.A Depression, unspecified; Z87.891 Personal history of nicotine dependence
CPT/HCPCS: 71045; 80048; 80076; 82550; 82553; 83880; 84484; 85025; 87486; 87581; 87633; 87798; 93005; 93041; 94760; 96374; 99284; J1938

== ENCOUNTER → 2025-01-19 | Outpatient (CLI) | payer MEDICARE, OTHER ==
[~2025-01-19] MED LIST changes: +ISOVUE-370 76% 100 ML VIAL As Ordered ONE
== END ==
LOC: M RAD 11:53
PROVIDERS: ATTEND Internal Medicine Cardiovascular Disease
DX: R06.02 Shortness of breath (principal); J90 Pleural effusion, not elsewhere classified; R91.8 Other nonspecific abnormal finding of lung field; J98.11 Atelectasis; R59.0 Localized enlarged lymph nodes; I25.10 Atherosclerotic heart disease of native coronary artery without angina pectoris; I70.0 Atherosclerosis of aorta
CPT/HCPCS: 71275; Q9967

== ENCOUNTER → 2025-01-28 | Outpatient (CLI) | payer MEDICARE, OTHER ==
[~2025-01-28] MED LIST changes: -ISOVUE-370 76% 100 ML VIAL As Ordered ONE
[2025-01-28 17:44] LABS: BASO # 0.1 10^3/uL (0.0-0.2); BASO % 0.6 % (0.0-1.0); EOS # 0.2 10^3/uL (0.0-0.5); EOS % 2.2 % (0.0-3.0); LYMPH # 1.2 10^3/uL (1.5-5.0); LYMPH % 14.4 % (24.0-44.0); MONO # 0.7 10^3/uL (0.0-0.8); MONO % 8.4 % (2.0-8.0); NEUTROPHILS # 6.2 10^3/uL (1.5-8.5); NEUTROPHILS % 74.2 % (36.0-66.0); PLATELET COUNT, AUTOMATED 168 10^3/uL (150-450)
[2025-01-28 18:15] LABS: CALCIUM LEVEL 8.9 MG/DL (8.3-10.6); CARBON DIOXIDE LEVEL 36.0 MMOL/L (20-31); CHLORIDE LEVEL 96.0 MMOL/L (98-107); CREATININE FOR GFR 1.84 MG/DL (0.55-1.30); GLOMERULAR FILTRATION RATE 27.7 (>39); POTASSIUM SERUM 4.1 MMOL/L (3.5-5.1); SODIUM LEVEL 141.0 MMOL/L (136-145)
== END ==
LOC: M PLALAB 16:25
PROVIDERS: ATTEND Nurse Practitioner Adult Health
DX: I50.9 Heart failure, unspecified (principal); N39.0 Urinary tract infection, site not specified

== ENCOUNTER → 2025-02-02 | Outpatient (CLI) | payer MEDICARE, OTHER ==
[2025-02-02 13:51] LABS: BASO # 0.1 10^3/uL (0.0-0.2); BASO % 0.8 % (0.0-1.0); EOS # 0.1 10^3/uL (0.0-0.5); EOS % 1.2 % (0.0-3.0); LYMPH # 1.3 10^3/uL (1.5-5.0); LYMPH % 11.9 % (24.0-44.0); MONO # 0.8 10^3/uL (0.0-0.8); MONO % 8.0 % (2.0-8.0); NEUTROPHILS # 8.1 10^3/uL (1.5-8.5); NEUTROPHILS % 77.4 % (36.0-66.0); PLATELET COUNT, AUTOMATED 189 10^3/uL (150-450)
[2025-02-02 14:19] LABS: CALCIUM LEVEL 8.9 MG/DL (8.3-10.6); CARBON DIOXIDE LEVEL 35.0 MMOL/L (20-31); CHLORIDE LEVEL 96.0 MMOL/L (98-107); CREATININE FOR GFR 1.04 MG/DL (0.55-1.30); GLOMERULAR FILTRATION RATE 55.0 (>39); POTASSIUM SERUM 4.1 MMOL/L (3.5-5.1); SODIUM LEVEL 142.0 MMOL/L (136-145)
== END ==
LOC: M PLALAB 11:09
PROVIDERS: ATTEND Nurse Practitioner Adult Health
DX: I50.9 Heart failure, unspecified (principal)

== ENCOUNTER 2025-04-12 20:30 | Observation (INO) | payer MEDICARE, OTHER ==
[~2025-04-12] VITALS: Ht 165.1 cm; Wt 90.4 kg
[2025-04-12 21:26] LABS: VENOUS BASE EXCESS 2.3 (-2.0-2.0); VENOUS HCO3 29.4 MMOL/L (23.0-27.0); VENOUS O2 SATURATION 78.5 % (60.0-80.0); VENOUS PARTIAL PRESSURE CO2 56.1 mmHg (38.0-50.0); VENOUS PARTIAL PRESSURE O2 44.9 mmHg (30.0-50.0); VENOUS PH 7.337 UNITS (7.330-7.430); VENOUS STANDARD HCO3 26.1 MMOL/L; VENOUS TOTAL CO2 31.1 MMOL/L (24.0-28.0)
[2025-04-12 21:32] LABS: BASO # 0.0 10^3/uL (0.0-0.2); BASO % 0.4 % (0.0-1.0); EOS # 0.1 10^3/uL (0.0-0.5); EOS % 1.1 % (0.0-3.0); LYMPH # 1.5 10^3/uL (1.5-5.0); LYMPH % 18.4 % (24.0-44.0); MONO # 0.6 10^3/uL (0.0-0.8); MONO % 7.7 % (2.0-8.0); NEUTROPHILS # 5.7 10^3/uL (1.5-8.5); NEUTROPHILS % 72.1 % (36.0-66.0); PLATELET COUNT, AUTOMATED 144 10^3/uL (150-450)
[2025-04-12] MEDS: NS (Normal Saline) 0.9% 1,000 ML IV ONE (22:00)
[2025-04-12 22:05] LABS: ALT/SGPT < 9 U/L (7.0-40); AST/SGOT 21 U/L (<34); CALCIUM LEVEL 9.4 MG/DL (8.3-10.6); CARBON DIOXIDE LEVEL 34 MMOL/L (20-31); CHLORIDE LEVEL 94 MMOL/L (98-107); CREATININE FOR GFR 1.53 MG/DL (0.55-1.30); GLOMERULAR FILTRATION RATE 34.6 (>39); POTASSIUM SERUM 3.9 MMOL/L (3.5-5.1); SODIUM LEVEL 139 MMOL/L (136-145)
[2025-04-12] MEDS: PANTOPRAZOLE 40MG VIAL IV ONE (23:14)
[2025-04-12] MEDS: ACETAMINOPHEN *IV* 1,000 MG in IV 1 EA IV ONE (23:14)
[2025-04-12] MEDS ORDERED: ISOVUE-370 76% 100 ML VIAL As Ordered ONE (23:18)
[2025-04-12] MEDS: ONDANSETRON 4MG/2ML VIAL IV ONE (23:19)
[2025-04-13] MEDS ORDERED: MAALOX 30 ML SUSP *UDC PO PRN (02:45)
[2025-04-13] MEDS ORDERED: GLUCAGON INJ 1 MG VIAL SC PRN (03:05)
[2025-04-13] MEDS ORDERED: GLUCOSE 4 GM CHEW PO PRN (03:05)
[2025-04-13] MEDS ORDERED: DEXTROSE 50% 50 ML SYRINGE IV PRN (03:05)
[2025-04-13] MEDS: NS (Normal Saline) 0.9% 1,000 ML IV SCH (03:45)
[2025-04-13 05:55] VITALS: BP 130/62; TEMP 97.8; O2SAT 91
[2025-04-13] MEDS: INSULIN LISPRO (NovoLOG) PER UNIT SC SCH ×3 (06:00→21:00)
[2025-04-13] MEDS: PANTOPRAZOLE 20 MG TAB PO SCH (08:27)
[2025-04-13 09:43] LABS: BASO # 0.0 10^3/uL (0.0-0.2); BASO % 0.5 % (0.0-1.0); EOS # 0.1 10^3/uL (0.0-0.5); EOS % 1.0 % (0.0-3.0); LYMPH # 1.1 10^3/uL (1.5-5.0); LYMPH % 18.3 % (24.0-44.0); MONO # 0.5 10^3/uL (0.0-0.8); MONO % 8.8 % (2.0-8.0); NEUTROPHILS # 4.3 10^3/uL (1.5-8.5); NEUTROPHILS % 71.1 % (36.0-66.0); PLATELET COUNT, AUTOMATED 110 10^3/uL (150-450)
[2025-04-13 10:03] LABS: LDH LACTATE DEHYDROGENASE 174.0 U/L (120-246)
[2025-04-13 10:08] LABS: CALCIUM LEVEL 8.6 MG/DL (8.3-10.6); CARBON DIOXIDE LEVEL 33.0 MMOL/L (20-31); CHLORIDE LEVEL 98.0 MMOL/L (98-107); CREATININE FOR GFR 1.75 MG/DL (0.55-1.30); GLOMERULAR FILTRATION RATE 29.5 (>39); POTASSIUM SERUM 3.9 MMOL/L (3.5-5.1); SODIUM LEVEL 140.0 MMOL/L (136-145)
[2025-04-13] MEDS ORDERED: SPIR-10 PO (11:40)
[2025-04-13] MEDS ORDERED: LOSA50TA28 PO (11:40)
[2025-04-13] MEDS ORDERED: HOME MED LIST COMPLETE! XX SCH (11:40)
[2025-04-13] MEDS: LIDOCAINE 1% MDV 20 ML VIAL SC SCH (11:40)
[2025-04-13 13:25] LABS: PH BODY FLUID 7.661 UNITS (NOT ESTABLISHED); SOURCE, BODY FLUID pH PLEURAL
[2025-04-13 13:45] VITALS: BP 107/50; TEMP 97.6; O2SAT 92
[2025-04-13 13:54] LABS: APPEARANCE, BODY FLUID CLOUDY (CLEAR); PLEURAL FL COLOR ORANGE (COLORLESS); SOURCE, BODY FLUID PLEURAL
[2025-04-13 14:00] VITALS: BP 95/46; TEMP 97.6; O2SAT 96
[2025-04-13] MEDS: SYMBICORT 80/4.5MCG INHALER 6GM INH SCH (14:21)
[2025-04-13] MEDS: IPRATROPIUM 0.5 MG/ALBUTEROL 2.5 MG INH SOL UD 3 ML NEB SCH (15:51)
[2025-04-13] MEDS: ACETAMINOPHEN 325 MG TAB PO PRN (18:13)
[2025-04-13] MEDS: ESCITALOPRAM OXALATE 10 MG TABLET PO SCH (20:18)
[2025-04-13] MEDS: SIMVASTATIN 40 MG TAB PO SCH (20:18)
[2025-04-13] MEDS: PANTOPRAZOLE 40MG TAB PO SCH (20:18)
[2025-04-13 20:30] VITALS: BP 93/50; TEMP 97.2; O2SAT 93
[2025-04-13 22:03] VITALS: BP 100/65; O2SAT 95
[2025-04-14 05:49] VITALS: BP 112/56; TEMP 97.8; O2SAT 91
[2025-04-14] MEDS ORDERED: KETOROLAC 30 MG/ML 1 ML VIAL IV ONE (06:10)
[2025-04-14] MEDS: ACETAMINOPHEN *IV* 1,000 MG in IV 1 EA IV ONE (06:30)
[2025-04-14 06:45] LABS: PLATELET COUNT, AUTOMATED 114 10^3/uL (150-450)
[2025-04-14 07:06] LABS: CALCIUM LEVEL 7.6 MG/DL (8.3-10.6); CARBON DIOXIDE LEVEL 32.0 MMOL/L (20-31); CHLORIDE LEVEL 101.0 MMOL/L (98-107); CREATININE FOR GFR 1.72 MG/DL (0.55-1.30); GLOMERULAR FILTRATION RATE 30.1 (>39); POTASSIUM SERUM 3.7 MMOL/L (3.5-5.1); SODIUM LEVEL 142.0 MMOL/L (136-145)
[2025-04-14] MEDS ORDERED: FLUZONE HIGH DOSE (65+) 0.5 ML SYRINGE (25-26) IM.IMMUN ONE (09:00)
[2025-04-14] MEDS ORDERED: PNEUMOC 21-VAL CONJ-DIP CRM/PF 0.5 ML SYRINGE IM.IMMUN ONE (09:00)
[2025-04-14] MEDS: TIOTROPIUM BROM 2.5MCG/ACTUATION 4GM INH INH SCH (09:05)
[2025-04-14 14:00] VITALS: BP 121/56; TEMP 98; O2SAT 93
[2025-04-14 19:19] LABS: APPEARANCE, URINE HAZY (CLEAR); BACTERIA, URINE AUTO 1+ (NEGATIVE); BILIRUBIN, URINE AUTO NEGATIVE (NEGATIVE); BLOOD, URINE BLOOD NEGATIVE (NEGATIVE); GLUCOSE, URINE (UA) AUTO NEGATIVE (NEGATIVE); KETONE, URINE AUTO NEGATIVE (NEGATIVE); LEUKOCYTE ESTERASE, URINE AUTO 3+ (NEGATIVE); MUCUS, URINE SMALL (NEGATIVE); NITRITE, URINE AUTO NEGATIVE (NEGATIVE); PROTEIN, URINE AUTO NEGATIVE (NEGATIVE); RBC, URINE AUTO 5 /HPF (0-3); SPECIFIC GRAVITY URINE AUTO 1.018 (1.002-1.035); SQUAMOUS EPITHELIAL CELL UR AU 11 /HPF (0-6); TRANSITIONAL EPITHELIAL AUTO <1 /HPF; UROBILINOGEN, URINE AUTO 0.2 mg/dL (0.0-2.0); WBC, URINE AUTO 24 /HPF (0-3)
[2025-04-14 19:54] VITALS: BP 118/56; TEMP 98.2; O2SAT 92
[2025-04-14] MEDS: RAMELTEON 8 MG TAB PO PRN (21:12)
[2025-04-15 06:00] VITALS: BP 128/60; TEMP 97.9; O2SAT 90
[2025-04-15 06:40] LABS: PLATELET COUNT, AUTOMATED 104 10^3/uL (150-450)
[2025-04-15 07:04] LABS: CALCIUM LEVEL 7.6 MG/DL (8.3-10.6); CARBON DIOXIDE LEVEL 30.0 MMOL/L (20-31); CHLORIDE LEVEL 104.0 MMOL/L (98-107); CREATININE FOR GFR 1.6 MG/DL (0.55-1.30); GLOMERULAR FILTRATION RATE 32.8 (>39); POTASSIUM SERUM 3.7 MMOL/L (3.5-5.1); SODIUM LEVEL 143.0 MMOL/L (136-145)
[2025-04-15] MEDS: PNEUMOC 21-VAL CONJ-DIP CRM/PF 0.5 ML SYRINGE IM.IMMUN ONE (09:00)
[2025-04-15] MEDS: FLUZONE HIGH DOSE (65+) 0.5 ML SYRINGE (25-26) IM.IMMUN ONE (10:14)
== END 2025-04-15 10:49 | disposition home or self-care (01) ==
LOC: M ED 20:30 → M ED INP 20:31 → UNDOADMOB 04-13 02:42 → M ED INP 04-13 05:55 → M MS5PR 04-13 05:55 → UNDODISOB 04-15 10:49
PROVIDERS: ADMIT Student in an Organized Health Care Education/Training Program; ATTEND Student in an Organized Health Care Education/Training Program
DX: J90 Pleural effusion, not elsewhere classified (principal); N17.9 Acute kidney failure, unspecified; M25.511 Pain in right shoulder; R94.4 Abnormal results of kidney function studies; R11.2 Nausea with vomiting, unspecified; Z99.81 Dependence on supplemental oxygen; C83.30 Diffuse large B-cell lymphoma, unspecified site; E87.3 Alkalosis; J96.10 Chronic respiratory failure, unspecified whether with hypoxia or hypercapnia; I10 Essential (primary) hypertension; E78.5 Hyperlipidemia, unspecified; K21.9 Gastro-esophageal reflux disease without esophagitis; R59.0 Localized enlarged lymph nodes; J44.9 Chronic obstructive pulmonary disease, unspecified; J98.11 Atelectasis; E11.9 Type 2 diabetes mellitus without complications; F32.A Depression, unspecified; R06.02 Shortness of breath; Z90.89 Acquired absence of other organs; Z90.49 Acquired absence of other specified parts of digestive tract; Z90.721 Acquired absence of ovaries, unilateral; Z98.41 Cataract extraction status, right eye; Z98.42 Cataract extraction status, left eye; Z96.1 Presence of intraocular lens; Z87.891 Personal history of nicotine dependence; Z84.19 Family history of other disorders of kidney and ureter; Z79.899 Other long term (current) drug therapy; Z79.51 Long term (current) use of inhaled steroids; Z79.84 Long term (current) use of oral hypoglycemic drugs; Z23 Encounter for immunization
CPT/HCPCS: 32555; 36415; 71045; 71275; 74177; 80047; 80048; 80076; 81001; 82042; 82803; 82945; 83605; 83615; 83880; 83986; 84155; 84157; 85025; 85027; 87070; 87075; 87116; 87205; 87206; 87486; 87581; 87633; 87798; 88108; 88305; 88313; 89051; 90662; 93005; 93041; 94640; 94760; 96365; 96366; 96375; 97161; 97530; 99285; G0008; G0378; J0134; J1815; J2405; J2470; Q9967

== ENCOUNTER 2025-04-18 13:07 | Emergency (ER) | payer MEDICARE, OTHER ==
[~2025-04-18] VITALS: Ht 165.1 cm; Wt 92.3 kg
[~2025-04-18 13:07] MED LIST changes: +LOSA50TA28 PO; +SPIR-10 PO
[2025-04-18 13:17] VITALS: BP 119/59; TEMP 97.3; O2SAT 96
[2025-04-18 14:43] LABS: BASO # 0.1 10^3/uL (0.0-0.2); BASO % 0.8 % (0.0-1.0); EOS # 0.1 10^3/uL (0.0-0.5); EOS % 1.4 % (0.0-3.0); LYMPH # 0.9 10^3/uL (1.5-5.0); LYMPH % 13.9 % (24.0-44.0); MONO # 0.4 10^3/uL (0.0-0.8); MONO % 6.9 % (2.0-8.0); NEUTROPHILS # 4.9 10^3/uL (1.5-8.5); NEUTROPHILS % 76.4 % (36.0-66.0); PLATELET COUNT, AUTOMATED 110 10^3/uL (150-450)
[2025-04-18 15:08] LABS: THYROXINE (T4) 7.0 UG/DL (4.5-10.9)
[2025-04-18 15:14] LABS: ALT/SGPT 13.0 U/L (7.0-40); AST/SGOT 24.0 U/L (<34); CALCIUM LEVEL 9.1 MG/DL (8.3-10.6); CARBON DIOXIDE LEVEL 31.0 MMOL/L (20-31); CHLORIDE LEVEL 102.0 MMOL/L (98-107); CREATININE FOR GFR 0.96 MG/DL (0.55-1.30); GLOMERULAR FILTRATION RATE 60.6 (>39); POTASSIUM SERUM 3.7 MMOL/L (3.5-5.1); SODIUM LEVEL 144.0 MMOL/L (136-145)
[2025-04-18] MEDS ORDERED: PRED10TA2 PO (16:32)
== END 2025-04-18 17:48 | disposition home or self-care (01) ==
LOC: M ED 13:07
DX: J44.1 Chronic obstructive pulmonary disease with (acute) exacerbation (principal); J90 Pleural effusion, not elsewhere classified; B34.1 Enterovirus infection, unspecified; I48.91 Unspecified atrial fibrillation; E11.9 Type 2 diabetes mellitus without complications; I10 Essential (primary) hypertension; F41.9 Anxiety disorder, unspecified; Z86.73 Personal history of transient ischemic attack (TIA), and cerebral infarction without residual deficits; Z79.51 Long term (current) use of inhaled steroids; Z79.84 Long term (current) use of oral hypoglycemic drugs; Z79.52 Long term (current) use of systemic steroids; Z79.899 Other long term (current) drug therapy
CPT/HCPCS: 71045; 80048; 80076; 83605; 83880; 84145; 84436; 84443; 85025; 87040; 87486; 87581; 87633; 87798; 93005; 93041; 93970; 94760; 96374; 99284; J2919